=== PATIENT | male | born 1980 | race Caucasian/White ===

== ENCOUNTER 2018-09-16 06:29 | Emergency (ER) | payer SELFPAY ==
[~2018-09-16] VITALS: Ht 195.6 cm; Wt 86.2 kg
[2018-09-16 06:30] VITALS: BP 131/86
[2018-09-16] MEDS ORDERED: AMOX500C PO (06:41)
--- NOTE | 2018-09-16 06:41 | PHYS DOC ---
Adult General Chief Complaint Chief Complaint: SORE THROAT HPI HPI Patient is a 38 year old male presented to ER today for evaluation of sore throat since last night. Patient said his son was diagnosed with strep throat about a week ago. Patient denies any fever, no headache, no neck pain. Review of Systems Review of Systems Constitutional: Denies fever or chills [] Eyes: Denies change in visual acuity, redness, or eye pain [] HENT: Denies nasal congestion , POSITIVE FOR sore throat [] Respiratory: Denies cough or shortness of breath [] Cardiovascular: No additional information not addressed in HPI [] GI: Denies abdominal pain, nausea, vomiting, bloody stools or diarrhea [] : Denies dysuria or hematuria [] Musculoskeletal: Denies back pain or joint pain [] Integument: Denies rash or skin lesions [] Neurologic: Denies headache, focal weakness or sensory changes [] Endocrine: Denies polyuria or polydipsia [] All other systems were reviewed and found to be within normal limits, except as documented in this note. Allergies Allergies Allergies Coded Allergies Type Severity Reaction Last Updated Verified lidocaine Allergy Intermediate 09/16/18 Yes Physical Exam Physical Exam Constitutional: Well developed, well nourished, no acute distress, non-toxic appearance. [] HENT: Normocephalic, atraumatic, bilateral external ears normal, oropharynx moist, no oral exudates, nose normal. ORAL PHARYNGEAL AREA IS ERYTHEMATOUS. NO TRISMUS. NO OBVIOUS PERITONSILLAR ABSCESS OR SWELLING Eyes: PERRLA, EOMI, conjunctiva normal, no discharge. [] Neck: Normal range of motion, no tenderness, supple, no stridor. [] Cardiovascular:Heart rate regular rhythm, no murmur [] Lungs & Thorax: Bilateral breath sounds clear to auscultation [] Abdomen: NOT DONE Skin: Warm, dry, no erythema, no rash. [] Back: NOT DONE Extremities: NOT DONE. Neurologic: Alert and oriented X 3, normal motor function, normal sensory function, no focal deficits noted. [] Psychologic: Affect normal, judgement normal, mood normal. [] Current Patient Data Vital Signs Vital Signs Date Time Temp Pulse Resp B/P (MAP) Pulse Ox O2 Delivery O2 Flow Rate FiO2 09/16/18 06:30 97.8 72 18 131/86 (101) 98 Room Air 97.8 EKG EKG [] Radiology/Procedures Radiology/Procedures [] Course & Med Decision Making Course & Med Decision Making Pertinent Labs and Imaging studies reviewed. (See chart for details) [] Dragon Disclaimer Dragon Disclaimer This electronic medical record was generated, in whole or in part, using a voice recognition dictation system. Departure Departure Impression: Primary Impression: Pharyngitis Disposition: HOME, SELF-CARE Condition: STABLE Patient Instructions: Viral and Bacterial Pharyngitis Scripts Amoxicillin (AMOXICILLIN) 500 Mg Capsule 1 CAP PO TID, #30 CAP Prov: KIMBERLY DOVER DO 09/16/18 KIMBERLY DOVER DO Sep 16, 2018 06:41
== END 2018-09-16 06:45 | disposition home or self-care (01) ==
LOC: ER 06:29
DX: J02.9 Acute pharyngitis, unspecified (principal); Z88.4 Allergy status to anesthetic agent
CPT/HCPCS: 99283